=== PATIENT | female | born 1960 | race Caucasian/White ===

== ENCOUNTER → 2016-10-27 | Day surgery (SDC) | payer OTHER ==
[~2016-10-27] MED LIST: ACETAMINOPHEN/HYDROcodone 325 MG/5 MG TAB ONE; BUPIVACAINE HCL PF 0.5% 30 ML VIAL ONE; KETOROLAC TROMETHAMINE 30 MG/ML (IVP) VIAL IV PUSH ONE; MIDAZOLAM HCL 2 MG/2 ML VIAL ONE; ONDANSETRON HCL 4 MG/2 ML VIAL IV PUSH ONE; PROPOFOL 200 MG/20 ML AMP IV ONE; SODIUM CHLORIDE 0.9% SOLN 1000 ML BTL ONE; ceFAZolin INJ 1,000 MG VIAL ONE
--- NOTE | 2016-10-28 10:58 | MP ---
cc: AIDA RINALDI M.D. DATE OF SURGERY 10/27/2016 PREOPERATIVE DIAGNOSIS Right ankle bimalleolar fracture status post open reduction internal fixation with retained painful hardware. POSTOPERATIVE DIAGNOSIS Right ankle bimalleolar fracture status post open reduction internal fixation with retained painful hardware. PROCEDURE Removal of deep hardware right ankle. SURGEON Dr. Aida Rinaldi [employer] EVON [facility]aria ANESTHESIA General. ESTIMATED BLOOD LOSS 50 cc. TOURNIQUET TIME 0 minutes. COMPLICATIONS None. JUSTIFICATION This patient is a 56-year-old female who injured the right ankle, has undergone previous surgical repair with open reduction, internal fixation by Dr. Dempsey. She has retained painful hardware along the medial aspect of her ankle. She was evaluated by the undersigned at the [facility]. Clinical exam as well as x-ray confirmed the above-named findings. The patient is counseled as to the risks, benefits and alternatives of the above-named proposed surgical procedure. She did wish to proceed with surgery. A detailed written consent was obtained. PROCEDURE The patient was identified by name, taken to the operating room, placed supine. General anesthesia was administered as well as 1 gram of IV Ancef. The right lower extremity was prepped and draped using as isopropyl alcohol, Hibiclens solution and DuraPrep solution. After time-out was performed, a longitudinal incision was made over the medial aspect of the right ankle using assistance of the fluoroscopic guidance. The head of the partially threaded cannulated screw was identified. A rongeur was used to remove the bone overgrowth in this region and a screwdriver was then used to removed the screw. The surgical wound was thoroughly irrigated with sterile saline solution. The subcutaneous layer was closed 3-0 0 Vicryl suture. The skin incision was closed with 3-0 nylon. A sterile dressing was applied. The patient tolerated the procedure well with no intraoperative complication noted. Aida Rinaldi MD JWM/SSB /4:20 PM /10:49 AM
== END | disposition home or self-care (01) ==
LOC: ESDC 13:50
PROVIDERS: ATTEND Orthopaedic Surgery Sports Medicine
DX: Z47.2 Encounter for removal of internal fixation device (principal); T84.84XA Pain due to internal orthopedic prosthetic devices, implants and grafts, initial encounter
CPT/HCPCS: 01480; 20680; 73600; 76000; J0690; J1885; J2250; J2405; J3010